=== PATIENT | male | born 1985 | race Caucasian/White ===

== ENCOUNTER 2016-08-15 08:32 | Emergency (ER) | payer BC ==
[2016-08-15 08:44] VITALS: BP 160/103
--- NOTE | 2016-08-15 08:57 | ERNOTE ---
Medical Problem HPI - Narrative Date of Service: 08/15/16 - General Chief Complaint: Laceration Time Seen by Provider: 08/15/16 08:46 Source: patient Exam Limitations: no limitations - Immun/Allergies/Home Medications Immunizations: IMMUNIZATION HX Immunizations Up to Date Yes History of Influenza Vaccine Yes Hx Pneumococcal Vaccination Yes Allergies/Adverse Reactions: Allergies codeine [Codeine] Allergy (Verified 08/15/16 08:42) aloe vera Adverse Reaction (Intermediate, Verified 08/15/16 08:42) rash Home Medications: HOME MEDICATIONS Ibuprofen [Motrin] 800 mg PO TID PRN #60 tab 05/15/15 [Last Taken Unknown] Omeprazole 20 mg PO PRN PRN 08/15/16 [Last Taken Unknown] - History of Present History Narrative: Patient presents to the ED for a finger laceration. Last night around 6pm he cut his left thumb with a knife peeling vegetables. Tip of left thumb. No other injuries. No N/T/W. Was not seen at that time as he had to go to work. Right handed. dT UTD 3 years ago. Do drainage or stephany of infection, minimal pain. Timing: constant Severity: mild Modifying Factors - (Improves): Present: rest Review of Systems - Review of Systems Constitutional: Absent: fever Neurological: Absent: weakness - Patient's Past Medical History Patient History - Medical: No pertinent hx, Obesity, Other Patient History - Cardiac/Respiratory: No pertinent hx Patient History - Cancer: No Hx of Cancer Patient History - Surgical Procedures: T & A Patient History - Other: None - Social History Living Situations: home Psych History: No pertinent hx Smoking Status: Former smoker Alcohol Use: none Drug Use: none - Immunizations Immunizations Up to Date: Yes Hx Pneumococcal Vaccination: Yes History of Influenza Vaccine: Yes Physical Exam - Physical Exam General Appearance: Present: alert, no apparent distress Eye Exam: Normal inspection: bilateral Ears, Nose, Throat: Present: normal ENT inspection Respiratory: Present: no respiratory distress, normal breath sounds Cardiovascular/Chest: Present: regular rate, rhythm Extremity Exam: Present: other - 1.5cm laceration left tip of thumb. Fairly well approximated. No FB. No infection. No bone tenderness or nail involvement. Full flexion and extension strength. No motor or sensory deficits. No tendon or bone involvement. Neurological Exam: Present: other - Sensation intact tip of thumb. No motor or sensory deficits. Full flexionand extension strngth. Skin Exam: Present: other - 1.5 cm laceration. No nail involvement. No FB. No signs of infection. ED Progress - Vital Signs Patient's Vital Signs:: I have reviewed the patient's vital signs. Vital Signs: Vital Signs 08/15/16 08:35 Temperature 36.7 C Pulse Rate 94 Respiratory 14 Rate Blood Pressure 160/103 O2 Sat by Pulse 97 Oximetry - Progress/Reassessment Chief Complaint: Laceration Progress Note-Subjective: 08/15/16 08:54 Wound over 12 hours old. No indication for primary closure. Will bandage with neosporin and splint. No infection at thsis time. No need for x-ray at this time. I discussed warning signs and reasons to return as well as the need for close f/u. Departure - Departure Clinical Impression: Laceration of thumb, Laceration of thumb with delay in treatment Disposition: Home self-care Condition: Stable Instructions: Laceration Care, Adult, [id number] Additional Instructions: Neosporin three times per day. Splint. Follow-up with your doctor in 3 days for a re-check. Return here for fever, redness, drainage, signs of infection or if your condition worsens or changes in any way. Referrals: Annabelle Dominique FNP [Primary Care Provider] -
--- OUTSIDE RECORDS SUMMARY | 2016-08-15 09:11 | XMS REPORT | Continuity of Care Document ---
:1985 Demographics Phone Unavailable Preferred Language Unknown Marital Status Unknown Nondenominational Affiliation Unknown Race Unknown Ethnic Group Unknown Author Organization [facility] ([facility]) [place] [address] Phone [phone] Care Team Providers Name Role Phone Unavailable Primary Care Provider Unavailable Source Comments This disclosure is being made pursuant to the Care Everywhere program, applicable federal and state laws, and may not contain all informaitonavailable regarding this patient.[facility] ([facility]) Active Allergies and Adverse Reactions Not on File Current Medications Not on file Active Problems Not on file Social History Tobacco Use Types Packs/Day Years Used Date Never Assessed Plan of Care Health Maintenance Due Date Last Done Comments Hepatitis B Vaccine (1 of 3 - Primary Series) 1985 Tdap Vaccine 1997 Lipid Disorder Screening 2004 MMR Vaccine 2004 Td Vaccine 2004 Varicella Vaccine (1 of 2 - Adult - No Evidence of 2004 Immunity) Influenza Vaccine: Seasonal (#1) 11/20/2015 Results from Last 3 Months Not on file
== END 2016-08-15 09:04 | disposition home or self-care (01) ==
LOC: ER 08:32
PROC: 2W3KX1Z Immobilization of Left Finger using Splint (ICD-10-PCS; principal; 2016-08-15)
DX: S61.012A Laceration without foreign body of left thumb without damage to nail, initial encounter (principal); W26.0XXA Contact with knife, initial encounter; Y93.G3 Activity, cooking and baking; Y92.000 Kitchen of unspecified non-institutional (private) residence as the place of occurrence of the external cause